=== PATIENT | male | born 1975 | race Caucasian/White ===

== ENCOUNTER 2024-05-18 20:56 | Inpatient (IN) | payer MEDICAID ==
[~2024-05-18] VITALS: Ht 172.7 cm; Wt 66.7 kg
[2024-05-18 21:00] VITALS: O2SAT 100
[2024-05-18 22:31] LABS: ALCOHOL, URINE DRUG SCREEN NEGATIVE (NEGATIVE); AMPHET/METH SCREEN,URINE NEGATIVE (NEGATIVE); BARBITURATE SCREEN, URINE NEGATIVE (NEGATIVE); BENZODIAZEPINES SCREEN,URINE NEGATIVE (NEGATIVE); CANNABINOID SCREEN,URINE NEGATIVE (NEGATIVE); COCAINE SCREEN,URINE NEGATIVE (NEGATIVE); METHADONE SCREEN, URINE NEGATIVE (NEGATIVE); OPIATE SCREEN,URINE NEGATIVE (NEGATIVE); PHENCYCLIDINE SCREEN,URINE NEGATIVE (NEGATIVE)
[2024-05-19 00:36] LABS: BASOPHILS % (AUTO) 0.7 % (0.0-2.0); EOSINOPHILS % (AUTO) 0.5 % (1.0-6.0); HEMATOCRIT 47.3 % (41-53); HEMOGLOBIN 16.1 g/dL (13.5-17.5); LYMPHOCYTES # (AUTO) 1.3 K/uL (1.0-4.8); LYMPHOCYTES % (AUTO) 17.5 % (22.0-44.0); MEAN CORPUSCULAR HEMOGLOBIN 33.5 pg (26.0-34.0); MEAN CORPUSCULAR HGB CONC 34.1 G/dL (31.0-37.0); MEAN CORPUSCULAR VOLUME 98 fL (80-100); MONOCYTES # (AUTO) 0.8 K/uL (0.1-1.0); MONOCYTES % (AUTO) 11.1 % (2.0-9.0); NEUTROPHILS # (AUTO) 5.2 K/uL (1.8-7.7); NEUTROPHILS % (AUTO) 70.2 % (40.0-70.0); PLATELET COUNT (AUTO) 266 K/uL (150-450); RED BLOOD CELL COUNT(AUTO) 4.81 MIL/uL (4.50-5.90); RED CELL DISTRIBUTION WIDTH 14.8 % (11.5-14.5); WHITE BLOOD COUNT (AUTO) 7.4 K/uL (4.5-11.0)
[2024-05-19 00:47] LABS: ANION GAP 10 mmol/L (8-16); CALCIUM, TOTAL 8.7 mg/dL (8.8-10.5); CARBON DIOXIDE 29 mmol/L (22-29); CHLORIDE 98 mmol/L (98-107); CREATININE 0.97 mg/dL (0.60-1.30); GLOMERULAR FILTR. RATE CALC > 60 mL/min (>60); GLUCOSE,RANDOM 111 mg/dL (70-110); POTASSIUM 3.5 mmol/L (3.5-5.1); SODIUM SERUM 137 mmol/L (136-145); UREA NITROGEN, BLOOD 6 mg/dL (7-18)
[2024-05-19 00:48] LABS: ALCOHOL, BLOOD (SERUM) < 3 mg/dL (0-10)
[2024-05-19 00:57] LABS: COVID AG,FIA SOURCE NASAL SWAB
[2024-05-19 01:03] LABS: SARS-COV2 (COVID) ANTIGEN,FIA Negative (Negative)
[2024-05-19] MEDS ORDERED: LORazepam 2 MG TABLET PO PRN (03:30)
[2024-05-19] MEDS ORDERED: HALOPERIDOL 5 MG TABLET PO PRN (03:30)
[2024-05-19] MEDS ORDERED: ZOLPIDEM TARTRATE 10 MG TABLET PO PRN (03:30)
[2024-05-19 04:28] VITALS: BP 142/89; PULSE 80; RESP 18; TEMP 97.3; O2SAT 98
[2024-05-19 08:13] VITALS: BP 130/78; PULSE 82; RESP 17; TEMP 98; O2SAT 98
[2024-05-19] MEDS ORDERED: IBUPROFEN 400 MG TABLET PO PRN (15:00)
[2024-05-19] MEDS ORDERED: GuaiFENesin/D-METHORPHAN [SUGAR-FREE] 200-20MG/10 ML SYRUP UDCUP PO PRN (15:00)
[2024-05-19] MEDS ORDERED: ONDANSETRON 4 MG TABLET PO PRN (15:00)
[2024-05-19] MEDS ORDERED: MAG HYDROX/ALUMINUM HYD/SIMETH ES 30 ML SUSPENSION UDCUP PO PRN (15:00)
[2024-05-19] MEDS ORDERED: ACETAMINOPHEN 325 MG TABLET PO PRN (15:00)
[2024-05-19] MEDS ORDERED: NICOTINE 14 MG/24 HOUR PATCH TD PRN (15:00)
[2024-05-19] MEDS ORDERED: LOPERAMIDE HCL 2 MG CAPSULE PO PRN (15:00)
[2024-05-19] MEDS ORDERED: DOCUSATE SODIUM 100 MG CAPSULE PO PRN (15:00)
[2024-05-19] MEDS ORDERED: CloNIDine HCL 0.1 MG TABLET PO PRN (15:00)
[2024-05-19] MEDS ORDERED: ALBUTEROL SULFATE HFA 90 MCG/PUFF 8 GM INHALER IH PRN (15:00)
[2024-05-19] MEDS ORDERED: PETROLATUM,WHITE 28 GM JELLY TP PRN (15:00)
[2024-05-19] MEDS ORDERED: MAGNESIUM HYDROXIDE SUSPENSION 30 ML UDCUP PO PRN (15:00)
[2024-05-19 20:04] VITALS: BP 134/90; PULSE 74; RESP 16; TEMP 97.5; O2SAT 96
[2024-05-20 08:27] VITALS: BP 131/83; PULSE 82; RESP 19; TEMP 97.7; O2SAT 97
[2024-05-20 08:33] LABS: HEMOGLOBIN A1C 5.2 % (3.8-5.6)
[2024-05-20 08:47] LABS: CHOL/HDL RATIO 2.6 (4.2-7.3); THYROID STIMULATING HORMONE 5.97 uIU/mL (0.36-3.74)
[2024-05-20] MEDS: SERTRALINE HCL 50 MG TABLET PO SCH (08:52)
[2024-05-20 20:28] VITALS: BP 147/96; PULSE 94; RESP 16; TEMP 96.4; O2SAT 98
[2024-05-21 08:43] VITALS: BP 136/93; PULSE 88; RESP 18; TEMP 98; O2SAT 100
[2024-05-21 09:03] LABS: APPEARANCE,URINE CLEAR (CLEAR); BILIRUBIN,URINE NEGATIVE (NEGATIVE); COLOR,URINE YELLOW (YELLOW); GLUCOSE, URINE (UA) NEGATIVE (NEGATIVE); KETONES,URINE NEGATIVE (NEGATIVE); LEUKOCYTE ESTERASE ,URINE NEGATIVE (NEGATIVE); NITRATE,URINE NEGATIVE (NEGATIVE); OCCULT BLOOD,URINE NEGATIVE (NEGATIVE); PROTEIN,URINE NEGATIVE (NEGATIVE); SPECIFIC GRAVITIY, URINE 1.018 (1.003-1.030); UROBILINOGEN,URINE <=1.0 mg/dL (<=1.0)
[2024-05-21] MEDS ORDERED: SERT-439 PO (11:47)
== END 2024-05-21 14:20 | disposition home or self-care (01) | DRG 754 ==
LOC: EMS 21:02 → B2S 05-19 03:21
PROVIDERS: ADMIT Psychiatry & Neurology Psychiatry; ATTEND Psychiatry & Neurology Psychiatry
PROC: GZHZZZZ Group Psychotherapy (ICD-10-PCS; principal; 2024-05-19)
PROC: GZ51ZZZ Individual Psychotherapy, Behavioral (ICD-10-PCS; 2024-05-19)
DX: F32.9 Major depressive disorder, single episode, unspecified (principal); E83.51 Hypocalcemia; R45.851 Suicidal ideations; Z20.822 Contact with and (suspected) exposure to COVID-19; R73.9 Hyperglycemia, unspecified
CPT/HCPCS: 80048; 80061; 80307; 81003; 83036; 84439; 84443; 85025; 99285; G0480